=== PATIENT | male | born 1980 | race Caucasian/White ===

== ENCOUNTER → 2018-01-20 | Outpatient (CLI) | payer SELFPAY ==
[~2018-01-20] MED LIST: OXYACE7.5T PO; PENVK250 PO
== END | disposition home or self-care (01) ==
LOC: LAB SHORT 14:49 → LAB EV 14:49
DX: L08.9 Local infection of the skin and subcutaneous tissue, unspecified (principal)
CPT/HCPCS: 87070; 87147; 87205

== ENCOUNTER 2019-11-11 16:24 | Emergency (ER) | payer SELFPAY ==
[~2019-11-11] VITALS: Ht 170.2 cm; Wt 68.0 kg
[2019-11-11] MEDS ORDERED: IBUP400 PO (21:04)
[2019-11-11 21:05] LABS: U Cannabinoids Screen DETECTED; U Methamphetamine Screen DETECTED
[2019-11-11 21:06] LABS: U Amphetamine Screen DETECTED; U Barbituate Screen Not Detected; U Benzodiazapine Screen Not Detected; U Buprenorphine Screen Not Detected; U Cocaine Screen Not Detected; U Methadone Screen Not Detected; U Opiates Screen DETECTED; U Oxycodone Screen Not Detected; U Phencyclidine Screen Not Detected; U Propoxyphene Screen Not Detected
== END 2019-11-11 21:40 | disposition home or self-care (01) ==
LOC: ER 16:24
PROVIDERS: Emergency Medicine
DX: S40.211A Abrasion of right shoulder, initial encounter (principal); S80.211A Abrasion, right knee, initial encounter; F17.210 Nicotine dependence, cigarettes, uncomplicated; V89.2XXA Person injured in unspecified motor-vehicle accident, traffic, initial encounter
CPT/HCPCS: 70450; 71045; 71260; 72125; 74177; 90714; G0480; J1170; J2405; J7120; Q9967

== ENCOUNTER 2020-03-30 18:32 | Observation (INO) | payer OTHER ==
[~2020-03-30] VITALS: Ht 165.1 cm; Wt 56.3 kg
[~2020-03-30 18:32] MED LIST changes: +IBUP400 PO
[2020-03-30 18:53] LABS: BASOPHILS ABSOLUTE AUTO 0.09 K/mm3 (0.00-0.23); BASOPHILS PERCENT AUTO 1 % (0-2); EOSINOPHILS ABSOLUTE AUTO 0.08 K/mm3 (0.00-0.68); EOSINOPHILS PERCENT AUTO 1 % (0-6); Hemoglobin 13.7 g/dL (13.5-17.5); IMMATURE GRAN ABSOLUTE AUTO 0.15 K/mm3 (0.00-0.10); IMMATURE GRAN PERCENT AUTO 2 % (0-1); LYMPHOCYTES ABSOLUTE AUTO 2.65 K/mm3 (0.84-5.20); LYMPHOCYTES PERCENT AUTO 33 % (21-46); MONOCYTES ABSOLUTE AUTO 0.45 K/mm3 (0.16-1.47); MONOCYTES PERCENT AUTO 6 % (4-13); Mean Corpuscular HGB 30.4 pg (26.0-34.0); Mean Corpuscular HGB Conc 32.6 g/dL (31.5-36.5); Mean Corpuscular Volume 93 fL (80-100); Mean Platelet Volume 10.8 fL (9.1-12.4); NEUTROPHILS ABSOLUTE AUTO 4.61 K/mm3 (1.96-9.15); NEUTROPHILS PERCENT AUTO 57 % (41-73); Platelet Count 275 K/mm3 (150-400); RDW Coefficient Variation 12.8 % (11.7-14.2); RDW Standard Deviation 44.1 fL (35.1-46.3); White Blood Cell Count 8.03 K/mm3 (4.00-11.30)
[2020-03-30 19:13] LABS: Alanine Aminotransfer (ALT/SGP 123 U/L (12-78); Albumin, Blood 3.7 g/dL (3.4-5.0); Albumin/Globulin Ratio 1.2 (0.8-1.8); Alk Phos 73 U/L (50-136); Anion Gap 8 mmol/L (6-16); Aspartate Aminotrans (AST/SGOT 176 U/L (12-37); Bilirubin, Total 0.2 mg/dL (0.1-1.0); Blood Urea Nitrogen 20 mg/dL (8-24); Bun/Creatinine Ratio 17.9 (12.0-20.0); CO2, Blood 26 mmol/L (21-32); Calcium, Blood 8.9 mg/dL (8.5-10.1); Chloride, Blood 109 mmol/L (98-108); Creatinine, Blood 1.12 mg/dL (0.60-1.20); Ethanol (Alcohol), Blood, Med <3 mg/dL; Globulin, Blood 3.2 g/dL (2.2-4.0); Glomerular Filtration Rate >60 (60-); Glucose, Blood 113 mg/dL (70-99); Potassium, Blood 3.7 mmol/L (3.5-5.5); Sodium, Blood 143 mmol/L (136-145); Total Protein, Blood 6.9 g/dL (6.4-8.2)
[2020-03-30 19:15] LABS: International Normalized Ratio 1.08; Prothrombin Time Results 11.5 Sec (9.7-11.5)
--- NOTE | 2020-03-30 21:35 | NUR ---
ASSUMED CARE OF PT AT 2030 TO ROOM ICU 7. PT ICU STATUS. SLIDE TRANSFERRED TO BED. PT TEACHING ON SPLINTING RIBS. NOTED OBVIOUS DEFORMITY TO UPPER RIGHT ANTERIOR CHEST. MID LUNG RIGHT ASSESS WITH DIMINISHED BREATH SOUNDS. PT FALLS ASLEEP OFTEN DURING INTERVIEW AND ASSESSMENT. BELIEVES THAT THIS IS August. STATES THAT HE IS AT A FRIEND'S HOME THEN CORRECTS HIMSELF TO BEING IN THE HOSPITAL. O2 ON AT 2 L/M. SATURATIONS REMAIN > 90 PERCENT. WILL CONTINUE TO MONITOR PT. WILL DO INCENTIVE SPIROMETERY TEACHING WHEN PT MORE AWAKE. AWAITING PT BEING ABLE TO VOID FOR UA SAMPLE. WILL REVIEW CHART AND PLAN OF CARE FOR THIS PT.
--- NOTE | 2020-03-30 23:52 | NUR ---
PT CONTINUES TO REST. WILL AWAKEN WITH TACTILE AND VERBAL STIMULI. PLACED LIDOCAINE PATCH OVER AREA OF RIGHT SIDE OF CHEST THAT PT STATED WAS MOST UNCOMFORTABLE. PT ON ROOM AIR AT THIS TIME. MAINTAINS > 90 PERCENT SATURATIONS. VSS. WILL CONTINUE TO MONITOR.
[2020-03-31 03:24] LABS: BASOPHILS ABSOLUTE AUTO 0.06 K/mm3 (0.00-0.23); BASOPHILS PERCENT AUTO 1 % (0-2); EOSINOPHILS ABSOLUTE AUTO 0.01 K/mm3 (0.00-0.68); EOSINOPHILS PERCENT AUTO 0 % (0-6); Hematocrit 41.7 % (37.0-53.0); Hemoglobin 13.4 g/dL (13.5-17.5); IMMATURE GRAN ABSOLUTE AUTO 0.04 K/mm3 (0.00-0.10); IMMATURE GRAN PERCENT AUTO 0 % (0-1); LYMPHOCYTES ABSOLUTE AUTO 1.76 K/mm3 (0.84-5.20); LYMPHOCYTES PERCENT AUTO 14 % (21-46); MONOCYTES PERCENT AUTO 9 % (4-13); Mean Corpuscular HGB 30.3 pg (26.0-34.0); Mean Corpuscular HGB Conc 32.1 g/dL (31.5-36.5); Mean Corpuscular Volume 94 fL (80-100); Mean Platelet Volume 10.7 fL (9.1-12.4); NEUTROPHILS ABSOLUTE AUTO 9.24 K/mm3 (1.96-9.15); NEUTROPHILS PERCENT AUTO 76 % (41-73); Platelet Count 248 K/mm3 (150-400); RDW Coefficient Variation 13.1 % (11.7-14.2); RDW Standard Deviation 45.7 fL (35.1-46.3); Red Blood Cell Count 4.42 M/mm3 (4.30-5.90); White Blood Cell Count 12.21 K/mm3 (4.00-11.30)
[2020-03-31 03:40] LABS: Alanine Aminotransfer (ALT/SGP 116 U/L (12-78); Albumin, Blood 3.4 g/dL (3.4-5.0); Albumin/Globulin Ratio 1.1 (0.8-1.8); Alk Phos 66 U/L (50-136); Anion Gap 5 mmol/L (6-16); Aspartate Aminotrans (AST/SGOT 162 U/L (12-37); Bilirubin, Total 0.4 mg/dL (0.1-1.0); Blood Urea Nitrogen 17 mg/dL (8-24); Bun/Creatinine Ratio 20.6 (12.0-20.0); CO2, Blood 29 mmol/L (21-32); Calcium, Blood 8.3 mg/dL (8.5-10.1); Chloride, Blood 108 mmol/L (98-108); Creatinine, Blood 0.83 mg/dL (0.60-1.20); Globulin, Blood 3.2 g/dL (2.2-4.0); Glomerular Filtration Rate >60 (60-); Glucose, Blood 99 mg/dL (70-99); Potassium, Blood 4.2 mmol/L (3.5-5.5); Sodium, Blood 142 mmol/L (136-145); Total Protein, Blood 6.6 g/dL (6.4-8.2)
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
--- NOTE | 2020-03-31 08:32 | NUR ---
Assumed care of pt at 0700. Bedside report received from Shailesh COPELAND. Pt A&O x 4. Answers questions. Follows commands. Verbalizes needs. Pleasant and cooperative with care. States he has pain in his chest, mainly when he takes a deep breath. Pain medication offered and pt educated on importance of coughing and deep breathing for pneumonia prevention. Pt verbalizes understanding. Pt on 2 LPM NC. SpO2 100%. Titrated to room air, tolerated well. SR per monitor with PVCs and PACs. Bed in lowest position. Call light in reach. Pt denies need at this time.
--- NOTE | 2020-03-31 11:19 | NUR ---
Dr Guerrier in to see patient. No new orders at this time, still awaiting assessment from surgical. Call placed to Dr Servin, who is assuming care of this patient. Provider states pt may have regular adult diet. States pt may be surgical floor status.
--- NOTE | 2020-03-31 11:36 | NUR ---
Pt's sister in to see patient. With permission from patient, update provided to patient's sister.
--- NOTE | 2020-03-31 12:00 | NUR ---
Pt in bed eating. Having worse pain than earlier. Pt calm, but tearful. Pain meds given. Pt attributes increase in pain due to activity of moving arms and eating.
--- NOTE | 2020-03-31 13:36 | NUR ---
Patient resting comfortably in bed at this time.
[2020-03-31 14:56] LABS: Source, Urine Catheter
[2020-03-31 15:10] LABS: Appearance, Urine Clear (Clear); Bilirubin, Urine Neg (Neg); Blood, Urine 5+ (Neg); Color, Urine Yellow (P-Yellow); Glucose Qualitative, Urine Neg (Neg); Ketones, Urine Neg (Neg); Leukocyte Esterase, Urine Neg (Neg); Nitrite, Urine Neg (Neg); Protein, Urine 2+ (Neg); Specific Gravity, Urine 1.015 (1.003-1.022); Urobilinogen, Urine NORM (Normal)
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
[2020-03-31 15:21] LABS: Squamous Epithelial Cells Rare /hpf (Few); White Blood Cells, Urine Rare /hpf (0-5)
[2020-03-31 15:30] LABS: Bacteria Few /hpf
--- NOTE | 2020-03-31 15:30 | NUR ---
ARRIVAL TO UNIT PT PLEASANT AND COOPERATIVE. TRANSERS SELF WITH MIN ASSIST TO BED. VSS. IVF CONTINUED. C/O PAIN; WILL MEDICATE. EATING SNACK AND ABLE TO SPEAK IN FULL SENTENCES; NO RESP DISTRESS NOTED.
[2020-03-31 18:38] LABS: U Amphetamine Screen DETECTED; U Benzodiazapine Screen DETECTED; U Cannabinoids Screen DETECTED; U Methamphetamine Screen DETECTED
[2020-03-31 18:39] LABS: U Barbituate Screen Not Detected; U Buprenorphine Screen Not Detected; U Cocaine Screen Not Detected; U Methadone Screen Not Detected; U Opiates Screen Not Detected; U Oxycodone Screen DETECTED; U Phencyclidine Screen Not Detected; U Propoxyphene Screen Not Detected
--- NOTE | 2020-03-31 21:09 | NUR ---
AMA: PT REQUESTING TO LEAVE AMA SINCE APPX 1999. ATTEMPTED TO EDUCATED AND REDIRECT PT. PT MEDICATED FOR PAIN, PT DECLINED ATIVAN. PT CONT TO INSIST ON LEAVING AMA. PT EDUCATED ON POTENTIAL FOR PNEUMONIA WELL POOR PAIN MGMT IF HE LEAVES W/O PAIN MEDS. PT VERBALIZES UNDERSTANDING. DR TEIXEIRA AND HOSPITALIST CIELO Flores NOTIFIED. PT SIGNED AMA FORM. INSENTIVE SPIROMETER SENT W/PT. ALL BELONGINGS SENT W/PT. PT GIVEN SECURITY SLIP. PT STATES HAS A RIDE COMING TO PICK HIM UP. PT AMB TO SECURITY TO COLLECT LOCKED BELONGINGS.
[2020-04-01 08:09] LABS: HBSAG SCREEN Negative (Negative); HEP A AB, IGM Negative (Negative); HEP B CORE AB, IGM Negative (Negative); HEP C VIRUS AB <0.1 (0.0-0.9)
[2020-04-01] MEDS ORDERED: Percocet 5-3251 EACH PO (16:16)
== END 2020-03-31 21:15 | disposition left against medical advice (07) ==
LOC: ER 18:32 → ICUW 18:33 → ICUE 18:33 → ICUW 20:27 → ICUE 20:27 → ER 20:27 → ICUE 20:29 → ICUW 20:29 → ICUE 21:35 → SURS 03-31 15:33
PROVIDERS: Emergency Medicine; Internal Medicine; Nurse Practitioner Acute Care; ADMIT Surgery
DX: S27.2XXA Traumatic hemopneumothorax, initial encounter (principal); S22.41XA Multiple fractures of ribs, right side, initial encounter for closed fracture; V29.9XXA Motorcycle rider (driver) (passenger) injured in unspecified traffic accident, initial encounter; J43.9 Emphysema, unspecified; R74.01 Elevation of levels of liver transaminase levels; F19.90 Other psychoactive substance use, unspecified, uncomplicated; F17.210 Nicotine dependence, cigarettes, uncomplicated
CPT/HCPCS: 36415; 70450; 71260; 72125; 74177; 80053; 80074; 81001; 83690; 85025; 85610; 96374-59; 96375; 96375-59; 96376; 99285-25; A9270; A9270-GY; G0378; G0480; J1885; J2060; J2405; J3010; J7030; Q9967

== ENCOUNTER 2020-04-01 14:33 | Emergency (ER) | payer OTHER ==
[~2020-04-01] VITALS: Ht 165.1 cm; Wt 65.8 kg
[2020-04-01] MEDS ORDERED: Percocet 5-3251 EACH PO (16:16)
== END 2020-04-01 16:55 | disposition home or self-care (01) ==
LOC: ER 14:33
DX: S22.41XA Multiple fractures of ribs, right side, initial encounter for closed fracture (principal); F17.210 Nicotine dependence, cigarettes, uncomplicated; V29.9XXA Motorcycle rider (driver) (passenger) injured in unspecified traffic accident, initial encounter; Y92.410 Unspecified street and highway as the place of occurrence of the external cause
CPT/HCPCS: 36415; 71046; 96361; 96374; 99283-25; A9270-GY; J1885; J7030

== ENCOUNTER 2020-05-22 09:54 | Emergency (ER) | payer OTHER ==
[~2020-05-22] VITALS: Ht 165.1 cm; Wt 65.8 kg
[~2020-05-22 09:54] MED LIST changes: +Percocet 5-3251 EACH PO
== END 2020-05-22 10:30 | disposition home or self-care (01) ==
LOC: ER 09:54
DX: R36.9 Urethral discharge, unspecified (principal); Z20.2 Contact with and (suspected) exposure to infections with a predominantly sexual mode of transmission; F17.210 Nicotine dependence, cigarettes, uncomplicated
CPT/HCPCS: 96372; 99283-25; J0696

== ENCOUNTER 2022-05-21 14:13 | Emergency (ER) | payer OTHER ==
[~2022-05-21] VITALS: Ht 165.1 cm; Wt 68.0 kg
[2022-05-21] MEDS ORDERED: CEPH500 PO (16:04)
== END 2022-05-21 16:39 | disposition home or self-care (01) ==
LOC: ER 14:13
DX: L08.9 Local infection of the skin and subcutaneous tissue, unspecified (principal); F17.210 Nicotine dependence, cigarettes, uncomplicated
CPT/HCPCS: 90714; A9270